=== PATIENT | male | born 1965 | race Caucasian/White ===

== ENCOUNTER 2019-10-14 04:00 | Inpatient (IN) | payer OTHER, SELFPAY ==
[2019-10-14] MEDS ORDERED: Adacel (T-DAP) 0.5 ML SYRINGE ONE (04:24)
[2019-10-14 04:28] LABS: #Basophils 0.1 thou/uL (0.0-0.2); #Eosinphils 0.3 thou/uL (0.0-0.7); #Monocytes 0.7 thou/uL (0.11-0.59); %Basophils 0.9 % (0.0-1.0); %Eosinophils 3.4 % (0.0-10.0); %Monocytes 7.3 % (0.0-10.0); %Neutrophils 59.4 % (42.0-75.0); Hemoglobin 15.5 g/dL (14.0-18.0); Mean Corpuscular HGB CONC 33.4 g/dL (32.0-36.0); Mean Corpuscular Hemoglobin 31.9 pg (27.0-31.0); Mean Corpuscular Volume 95.5 fL (78.0-98.0); Mean Platelet Volume 7.9 fL (7.4-10.4); Platelet Count 196 thou/uL (130-400); RBC Distribution Width 12.1 % (11.5-14.5); Red Blood Cell (RBC) Count 4.87 mill/uL (4.70-6.10); White Blood Cell (WBC) Count 10.1 thou/uL (4.8-10.8)
[2019-10-14 04:35] LABS: PTT 25.5 SEC (22.9-36.1); Prothrombin Time 12.7 SEC (12.0-14.7)
[2019-10-14] MEDS ORDERED: Dextrose 5% in Water 1,000 ML IV PRN (04:45)
[2019-10-14] MEDS ORDERED: hydrALAZINE 20 MG/ML VIAL SLOW IVP PRN (04:45)
[2019-10-14] MEDS ORDERED: Ondansetron PF 4 MG/2 ML Vial IVP PRN (04:45)
[2019-10-14] MEDS ORDERED: Dextrose 50% Abboject 50 ML SYRINGE SLOW IVP PRN (04:45)
[2019-10-14] MEDS ORDERED: traMADol HCl 50 MG TAB PO PRN (04:48)
[2019-10-14] MEDS ORDERED: Gabapentin 300 MG CAP PO PRN (04:51)
[2019-10-14] MEDS ORDERED: Cyclobenzaprine 10 MG TAB PO PRN (04:51)
[2019-10-14 04:56] LABS: ALT (SGPT) 83 U/L (8-55); AST (SGOT) 130 U/L (5-34); Albumin 4.1 g/dL (3.5-5.0); Alkaline Phosphatase 65 U/L (40-110); Anion Gap 17 mmol/L (10-20); BUN (Urea Nitrogen) 10 mg/dL (8.4-25.7); Bilirubin, Total 0.3 mg/dL (0.2-1.2); Calc. Creatinine Clearance 0 mL/min (70-130); Calcium 9.1 mg/dL (7.8-10.44); Carbon Dioxide 19 mmol/L (22-29); Chloride 103 mmol/L (98-107); Estimated GFR-MDRD 82; Globulin 2.6 g/dL (2.4-3.5); Glucose 119 mg/dL (70-105); Potassium 3.6 mmol/L (3.5-5.1); Protein, Total 6.7 g/dL (6.0-8.3); Sodium 135 mmol/L (136-145)
[2019-10-14 05:20] LABS: Acetaminophen Less than 6.0 mcg/mL (10.0-30.0); Alcohol 241 mg/dL (Less than 10); Salicylate Less than 8.0 mg/dL (15.0-30.0)
[2019-10-14] MEDS ORDERED: Gabapentin 300 MG CAP PO SCH (05:30)
[2019-10-14] MEDS ORDERED: Cyclobenzaprine 10 MG TAB PO SCH (05:30)
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
[2019-10-14] MEDS: Acetaminophen 1,000 MG in Premix Bag 1 BAG IVPB SCH ×4 (06:04→23:58)
[2019-10-14] MEDS: Nicotine 14 MG PATCH TD SCH (06:04)
[2019-10-14] MEDS: Sodium Chloride 0.9% 1,000 ML IV SCH ×4 (06:04→21:51)
[2019-10-14] MEDS: traMADol HCl 50 MG TAB PO SCH ×4 (06:05→23:58)
[2019-10-14 06:20] VITALS: BMI 26.2
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
[2019-10-14 07:38] LABS: Lactic Acid 1.7 mmol/L (0.5-2.2)
--- NOTE | 2019-10-14 07:43 | RAD ---
EXAM: Single view of the chest HISTORY: Preoperative radiograph COMPARISON: None FINDINGS: Single view of the chest shows a normal sized cardiomediastinal silhouette. There is no kevin dence of consolidation, mass, or pleural effusion. The bones are unremarkable. IMPRESSION: No evidence of acute cardiopulmonary disease
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
--- NOTE | 2019-10-14 07:55 | RAD ---
EXAM: Single view of the left femur HISTORY: Reduction of femur fracture COMPARISON: None FINDINGS: A single view of femur shows a fracture of the midportion of the left femur. IMPRESSION: Mid left femur fracture
--- NOTE | 2019-10-14 07:58 | PDOC.EVN ---
Event Note - Event Note Event Note: Agree with Meño WARNER note. Patient to OR for left femur fracture later today.
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
[2019-10-14] MEDS: Senokot S 8.6-50 MG TAB PO SCH ×2 (08:10→20:51)
[2019-10-14] MEDS: Thiamine 100 MG TAB PO SCH (08:10)
[2019-10-14] MEDS: Famotidine/PF 20 mg/2ml Vial SLOW IVP SCH ×2 (08:10→20:51)
[2019-10-14] MEDS: Oxazepam 10 MG CAP PO SCH ×2 (08:10→20:51)
[2019-10-14] MEDS: Folic Acid 1 MG TAB PO SCH (08:10)
[2019-10-14] MEDS: Polyethylene Glycol 3350 17 GM Packet PO SCH (08:10)
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
[2019-10-14] MEDS ORDERED: Morphine 2 MG/ML SYRINGE SLOW IVP PRN (10:06)
[2019-10-14] MEDS ORDERED: ePHEDrine/0.9% NaCl/PF SYRINGE 50 mg/10 ml ONE (10:11)
[2019-10-14] MEDS ORDERED: Glycopyrrolate 0.2 MG/ML 5 ML SYRINGE ONE (10:11)
[2019-10-14] MEDS ORDERED: Lidocaine 1% PF 5 ML VIAL ONE (10:11)
[2019-10-14] MEDS ORDERED: PROPOFOL 200 MG/20 ML VIAL ONE (10:11)
[2019-10-14] MEDS ORDERED: Rocuronium Bromide 10 MG/ML (10ML VIAL) ONE (10:11)
[2019-10-14] MEDS ORDERED: Ondansetron PF 4 MG/2 ML Vial ONE (10:11)
[2019-10-14] MEDS ORDERED: PHENYLEPHRINE-NS 100 MCG/ML 10 ML SYRINGE ONE (10:11)
[2019-10-14] MEDS ORDERED: Succinylcholine Chloride 20 MG/ML 10 ml SYRINGE FS ONE (10:11)
[2019-10-14] MEDS ORDERED: Fentanyl 100 MCG/2 ML VIAL ONE (12:08)
[2019-10-14] MEDS ORDERED: Clindamycin/D5W 900 mg/50 ml Premix Bag ONE (12:14)
[2019-10-14] MEDS ORDERED: Iopamidol 370 76% 100 ML VIAL ONE (12:56)
[2019-10-14] MEDS ORDERED: HYDROmorphone 2 MG/ML VIAL ONE (13:44)
[2019-10-14] MEDS ORDERED: Neomycin-Polymyxin 1 ML AMP ONE (13:47)
[2019-10-14] MEDS ORDERED: HYDROmorphone 2 MG/ML VIAL SLOW IVP PRN (14:11)
[2019-10-14] MEDS ORDERED: Ondansetron HCl/PF 4 MG/2 ML Vial IVP PRN (14:11)
[2019-10-14] MEDS ORDERED: Promethazine HCl 25 MG/ML VIAL IM PRN (14:11)
[2019-10-14] MEDS ORDERED: PACU-Morphine 4MG/ML VIAL SLOW IVP PRN (14:11)
[2019-10-14] MEDS ORDERED: Promethazine HCl 25 MG/ML VIAL SLOW IVP PRN (14:11)
--- NOTE | 2019-10-14 14:59 | RAD ---
EXAM: 2 views of the left femur HISTORY: Pinning of femur fracture COMPARISON: 10/14/2019 at 4:05 AM FINDINGS: The patient has ongoing intramedullary marion fixation of the fracture of the midportion of th e left femur. No perihardware lucency is seen. IMPRESSION: Ongoing pinning of left femur fracture
[2019-10-14] MEDS ORDERED: Morphine 4 MG/ML VIAL IV PRN (15:39)
--- NOTE | 2019-10-14 16:11 | OP ---
DATE OF PROCEDURE: 10/14/2019 PREOPERATIVE DIAGNOSIS: Midshaft fracture of the left femur. POSTOPERATIVE DIAGNOSIS: Midshaft fracture of the left femur. PROCEDURE PERFORMED: Intramedullary rodding, midshaft fracture of the left femur. ANESTHESIA: General. DESCRIPTION OF PROCEDURE: The patient was given preoperative IV antibiotics, taken to the operating room, placed in the supine position. Satisfactory general anesthesia was performed. The patient was then placed on the fracture table. All bony prominences were well padded, and traction was applied across the left foot and ankle. C-arm was used to verify good alignment of the midshaft of the left femur. The lateral aspect of the left hip and thigh was then sterilely prepped and draped. A longitudinal incision was made starting just proximal to the greater trochanter. Incision was approximately 3 inches in length. Sharp dissection was made down through the iliotibial band and under fluoroscopic visualization, a guidewire was placed into the greater trochanter was then over-reamed. The guide pin was then placed into the intramedullary canal crossing the fracture and into the distal aspect of the femur. Appropriate length marion was measured. The intramedullary canal was then sequentially reamed up to 14.5 mm, and a Synthes lateral entry femoral reconstruction nail that was 13 mm in diameter and 400 mm in length was inserted, so that the proximal aspect of the nail was even with the greater trochanter. This provided anatomic alignment of the midshaft fracture and was verified that the marion was appropriately placed distally. The wound was then copiously irrigated with antibiotic solution. Wound was closed using #2 Vicryl for the iliotibial band, 0 Vicryl for the fat and subcutaneous tissue, and skin was closed with skin manny. Sterile dressing was applied. The patient was taken out of traction, taken off the fracture table. He was awakened, extubated, and transferred to recovery room in stable condition. ESTIMATED BLOOD LOSS: 100 mL. COMPLICATIONS: None. Job ID: [id number]
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
[2019-10-15 05:38] LABS: #Lymphocytes 0.9 thou/uL (1.20-3.40); #Monocytes 1.2 thou/uL (0.11-0.59); #Neutrophils 10.6 thou/uL (1.40-6.50); %Eosinophils 0.1 % (0.0-10.0); %Lymphocytes 7.1 % (21.0-51.0); %Monocytes 9.4 % (0.0-10.0); %Neutrophils 83.4 % (42.0-75.0); Hemoglobin 12.6 g/dL (14.0-18.0); Mean Corpuscular HGB CONC 33.8 g/dL (32.0-36.0); Mean Corpuscular Hemoglobin 32.1 pg (27.0-31.0); Mean Corpuscular Volume 95.1 fL (78.0-98.0); Platelet Count 165 thou/uL (130-400); RBC Distribution Width 12.1 % (11.5-14.5); Red Blood Cell (RBC) Count 3.93 mill/uL (4.70-6.10); White Blood Cell (WBC) Count 12.7 thou/uL (4.8-10.8)
[2019-10-15] MEDS: Sodium Chloride 0.9% 1,000 ML IV SCH ×3 (05:53→22:47)
[2019-10-15] MEDS: traMADol HCl 50 MG TAB PO SCH ×3 (05:54→18:24)
[2019-10-15] MEDS: Nicotine 14 MG PATCH TD SCH (05:54)
[2019-10-15] MEDS ORDERED: HYDROcodone/Acetaminophen 10/325 mg Tablet PO PRN (06:00)
[2019-10-15 06:03] LABS: Anion Gap 11 mmol/L (10-20); BUN (Urea Nitrogen) 12 mg/dL (8.4-25.7); Calc. Creatinine Clearance 125 mL/min (70-130); Calcium 9.1 mg/dL (7.8-10.44); Carbon Dioxide 24 mmol/L (22-29); Chloride 103 mmol/L (98-107); Estimated GFR-MDRD Greater than 90; Glucose 122 mg/dL (70-105); Potassium 4.6 mmol/L (3.5-5.1); Sodium 133 mmol/L (136-145)
[2019-10-15] MEDS ORDERED: Prevnar 13-Val Conj/PF 0.5 ML SYRINGE IM ONE (07:30)
[2019-10-15] MEDS ORDERED: FLU VACC QS2019-20(6MOS UP)/PF 60 MCG/0.5 ML SYRINGE IM ONE (07:30)
[2019-10-15] MEDS: Oxazepam 10 MG CAP PO SCH ×2 (07:48→21:15)
[2019-10-15] MEDS: Senokot S 8.6-50 MG TAB PO SCH ×2 (07:49→21:15)
[2019-10-15] MEDS: Folic Acid 1 MG TAB PO SCH (07:49)
[2019-10-15] MEDS: Thiamine 100 MG TAB PO SCH (07:49)
[2019-10-15] MEDS: Famotidine/PF 20 mg/2ml Vial SLOW IVP SCH (07:50)
[2019-10-15] MEDS: Polyethylene Glycol 3350 17 GM Packet PO SCH (07:50)
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
[2019-10-15] MEDS ORDERED: Doxylamine 25 MG TAB PO PRN (13:58)
[2019-10-15] MEDS: HYDROcodone/Acetaminophen 10/325 mg Tablet PO PRN (15:47)
--- NOTE | 2019-10-15 19:10 | PRG ---
DATE OF SERVICE: 10/15/2019 SUBJECTIVE: The patient is one day status post intramedullary rodding, midshaft fracture of the left femur. The patient has already gotten out of bed and ambulated with physical therapy and tolerated it very well. The patient states that he has generalized body soreness, but no other acute pain. OBJECTIVE: VITAL SIGNS: The patient has been afebrile. Vital signs have been stable. Last blood pressure was 130/81. EXTREMITIES: Left lower extremity is neurovascularly intact. LABORATORY DATA: Laboratory today shows white count 12.7 and hemoglobin 12.6. PLAN: The patient will continue to work with therapy, ambulating with crutches. He may weight bear as tolerated on the left lower extremity. The patient probably will end up being discharged to home. He is to continue to work with therapy, so it can be as safe as possible. Job ID: [id number]
[2019-10-15] MEDS: Famotidine 20 MG TAB PO SCH (21:15)
[2019-10-15] MEDS ORDERED: ALPRAZolam 0.5 MG TAB PO PRN (23:10)
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
[2019-10-16] MEDS: traMADol HCl 50 MG TAB PO SCH ×2 (00:55→06:23)
[2019-10-16] MEDS: HYDROcodone/Acetaminophen 10/325 mg Tablet PO PRN ×3 (03:01→15:30)
[2019-10-16] MEDS: Nicotine 14 MG PATCH TD SCH (06:00)
[2019-10-16] MEDS: Sodium Chloride 0.9% 1,000 ML IV SCH (06:24)
[2019-10-16] MEDS ORDERED: traMADol HCl 50 MG TAB PO PRN (07:20)
[2019-10-16] MEDS ORDERED: Acetaminophen 500 MG TAB PO SCH (07:30)
[2019-10-16] MEDS ORDERED: traMADol HCl 50 MG TAB PO SCH (08:07)
[2019-10-16] MEDS ORDERED: Bisacodyl 10 MG SUPP PR SCH (08:15)
[2019-10-16 08:22] LABS: #Eosinphils 0.1 thou/uL (0.0-0.7); #Lymphocytes 1.6 thou/uL (1.20-3.40); #Monocytes 1.3 thou/uL (0.11-0.59); #Neutrophils 9.9 thou/uL (1.40-6.50); %Basophils 0.4 % (0.0-1.0); %Lymphocytes 12.3 % (21.0-51.0); %Monocytes 9.7 % (0.0-10.0); %Neutrophils 76.6 % (42.0-75.0); Hemoglobin 13.1 g/dL (14.0-18.0); Mean Corpuscular HGB CONC 33.3 g/dL (32.0-36.0); Mean Corpuscular Hemoglobin 32.6 pg (27.0-31.0); Mean Corpuscular Volume 97.9 fL (78.0-98.0); Mean Platelet Volume 8.1 fL (7.4-10.4); Platelet Count 157 thou/uL (130-400); RBC Distribution Width 12.1 % (11.5-14.5); Red Blood Cell (RBC) Count 4.02 mill/uL (4.70-6.10); White Blood Cell (WBC) Count 12.9 thou/uL (4.8-10.8)
[2019-10-16 08:42] LABS: Anion Gap 9 mmol/L (10-20); BUN (Urea Nitrogen) 14 mg/dL (8.4-25.7); Calc. Creatinine Clearance 117 mL/min (70-130); Calcium 9.2 mg/dL (7.8-10.44); Carbon Dioxide 27 mmol/L (22-29); Chloride 102 mmol/L (98-107); Estimated GFR-MDRD Greater than 90; Glucose 122 mg/dL (70-105); Phosphorus 2.5 mg/dL (2.3-4.7); Potassium 4.2 mmol/L (3.5-5.1); Sodium 134 mmol/L (136-145)
[2019-10-16] MEDS ORDERED: Enoxaparin Sodium 40 MG/0.4 ML SYRINGE SC SCH (09:00)
[2019-10-16] MEDS ORDERED: Gabapentin 300 MG CAP PO SCH (09:00)
[2019-10-16] MEDS: Gabapentin 300 MG CAP PO SCH ×2 (09:21→15:30)
[2019-10-16] MEDS: Folic Acid 1 MG TAB PO SCH (09:21)
[2019-10-16] MEDS: Famotidine 20 MG TAB PO SCH (09:22)
[2019-10-16] MEDS: Oxazepam 10 MG CAP PO SCH (09:22)
[2019-10-16] MEDS: Thiamine 100 MG TAB PO SCH (09:22)
[2019-10-16] MEDS: Senokot S 8.6-50 MG TAB PO SCH (09:22)
[2019-10-16] MEDS: Polyethylene Glycol 3350 17 GM Packet PO SCH (09:22)
[2019-10-16] MEDS: Ibuprofen 800 MG TAB PO SCH ×2 (09:27→15:36)
[2019-10-16] MEDS ORDERED: Sodium Phosphate 30 MMOL in Sodium Chloride 0.9% 250 ML 250 ML IVPB SCH (09:30)
[2019-10-16] MEDS ORDERED: Acetaminophen 325 MG TAB PO SCH (12:00)
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
[2019-10-16 15:35] VITALS: BP 123/76; TEMP 98.3
--- NOTE | 2019-10-16 15:37 | PRG ---
DATE OF SERVICE: 10/16/2019 SUBJECTIVE: The patient is status post intramedullary rodding of the left femur. He is doing very well. He has been ambulating in the [place] with physical therapy. He is able to actively lift his left lower extremity up. He has been able to control the pain with pain pills. The patient states that he is going home at discharge. OBJECTIVE: VITAL SIGNS: The patient has been afebrile, pulse 87, respiratory rate 20, O2 saturation 95% on room air, and blood pressure 146/87. LABORATORY DATA: CBC this morning shows white count 12.9, hemoglobin 13.1, and hematocrit 39.4. Remaining values on chemistry are normal. PLAN: The patient orthopedically is stable to be discharged today. I did write a prescription for tramadol 50 mg one every 4 to 6 hours as needed for pain #50 with one refill. Follow up in my office in 2 weeks. Job ID: [id number]
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
== END 2019-10-16 18:25 | disposition home or self-care (01) | DRG 482 ==
LOC: ERS 04:00 → SURG B 05:56
PROVIDERS: ADMIT Surgery; ATTEND Surgery
PROC: 0QS706Z Reposition Left Upper Femur with Intramedullary Internal Fixation Device, Open Approach (ICD-10-PCS; principal; 2019-10-14)
DX: S72.002A Fracture of unspecified part of neck of left femur, initial encounter for closed fracture (principal); V47.5XXA Car driver injured in collision with fixed or stationary object in traffic accident, initial encounter; F32.9 Major depressive disorder, single episode, unspecified; F10.129 Alcohol abuse with intoxication, unspecified; Z79.899 Other long term (current) drug therapy; Z28.21 Immunization not carried out because of patient refusal
CPT/HCPCS: 36415; 70450; 71045; 71260; 72125; 74177; 76000; 80048; 80053; 80307; 83605; 83735; 84100; 85025; 85610; 85730; 86850; 86900; 86901; 90715; C1713; C1769; G0390; J0131; J1170; J1650; J2001; J2270; J2405; J2704; J3010; J3490; J7050; Q9967; S0028